=== PATIENT | male | born 1990 | race Caucasian/White ===

== ENCOUNTER 2017-02-07 04:39 | Emergency (ER) | payer OTHER ==
[~2017-02-07 04:39] MED LIST: AUGMENTIN PO; KEFLEX PO; LORTAB 10-5001 EACH PO
== END 2017-02-07 20:25 | disposition left against medical advice (07) ==
LOC: CED 04:39
DX: Z53.21 Procedure and treatment not carried out due to patient leaving prior to being seen by health care provider (principal)

== ENCOUNTER 2017-02-11 09:35 | Emergency (ER) | payer OTHER ==
--- NOTE | ~2017-02-11 | US115 ---
[facility], [place]. [facility] A Service of [facility] & [facility] RADIOLOGY TEXT RESULTS PATIENT: ARAM MCDONOUGH LOCATION: SED : 86 UNIT #: [id number] AGE: [address]: Woodrow Willett MD SEX: M ORDER DR: [id number] [place] [id number] E MR#: [id number] Acc #: [id number] NAME: ARAM MCDONOUGH : 1990 SEX: M STUDY DATE/TIME: 02/11/2017 9:46 UNIT: SED ROOM: STUDY DESCRIPTION: US Scrotum and Contents Attending Physician: Woodrow Willett M.D. Ordering Physician: Woodrow Willett M.D. Primary Care Physician: Primary Care Physician No MEDICAL IMAGING REPORT This report is preliminary unless electronic signature is present. EXAM Scrotal ultrasound INDICATIONS Testicular pain, bilateral for the past month. PROCEDURE Arvizu-scale and Doppler imaging scrotum and scrotal contents. COMPARISON None FINDINGS Right testicle measures 2.0 x 2.6 x 3.7 cm. Left testicle measures 2.6 x 2.1 x 3.6 cm. No mass. Normal flow. IMPRESSION Negative scrotal ultrasound. Dictated by... Giovanni Booker M.D. THIS IS AN ELECTRONICALLY VERIFIED REPORT Giovanni Booker M.D. at 02/12/2017 2:02 PM EED/to TD: 02/11/2017 15:37 JOB #: [id number] MEDICAL IMAGING REPORT Page 1 of 1
[2017-02-11] MEDS ORDERED: NO MEDICATIONS (09:42)
[2017-02-11 10:53] LABS: URINE SOURCE CLEAN CATCH
[2017-02-11 10:55] LABS: URINE APPEARANCE CLEAR; URINE BILIRUBIN NEG (NEG); URINE BLOOD TRACE-INTACT (NEG); URINE COLOR YELLOW; URINE GLUCOSE NEG (NORM); URINE KETONE TRACE (NEG); URINE LEUKOCYTE ESTERASE NEG (NEG); URINE NITRATE NEG (NEG); URINE PROTEIN NEG (NEG); URINE SPECIFIC GRAVITY 1.015 (1.003-1.035)
[2017-02-11 10:58] LABS: MICRO INDICATED? YES
[2017-02-11 11:09] LABS: CULTURE INDICATED? NO; URINE BACTERIA NEG (NEG); URINE MUCUS PRESENT; URINE RBC 0-2 /[HPF] (0-2); URINE SQUAMOUS EPITHELIAL CELL OCCAS /[HPF]; URINE WBC NEG /[HPF] (0-5)
== END 2017-02-11 11:15 | disposition home or self-care (01) ==
LOC: SED 09:35
PROVIDERS: Emergency Medicine
DX: K42.9 Umbilical hernia without obstruction or gangrene (principal); N50.811 Right testicular pain; N50.812 Left testicular pain
CPT/HCPCS: 76870; 81003; 99284